=== PATIENT | female | born 1995 | race Asian ===

== ENCOUNTER 2023-08-09 07:48 | Inpatient (IN) ==
--- NOTE | 2023-08-09 08:47 | History & Physical Report ---
Date of Service August 09, 2023 Assessment & Plan (1) 41 weeks gestation of : (2) Encounter for induction of labor: Plan admit, iv. labs. add pitocin. epidural when desires. fhts categ 1. Admission and Anticipated Discharge Date Admission Date: August 09, 2023 History of Present Illness Chief Complaint: planned induction Primary Care Provider: JAME PCP 28yo at 41 wks egmichelle presents to L&D with cc of planned induction for postdates. No rom. Some irregular ctx. No significant vb. +FM. PNC otherwise uncomplicated. PNL rh pos, ri, gbs neg. OBH: g1 GYNH: nl paps, no stds Allergies Allergy/AdvReac Type Severity Reaction Status Date / Time No Known Allergies Allergy Verified 08/08/23 14:50 Home Medications Medication Instructions Recorded Confirmed Type prenat.vits,ning,kli-pkuy-rifwa 1 tab PO DAILY 12/14/22 08/09/23 History breast pump #1 ea 05/15/23 08/08/23 Rx ferrous sulfate 325 mg (65 mg 1 mg Q OTHER DAY 08/06/23 08/09/23 History iron) tablet Patient History Medical History (Updated 08/09/23 @ 08:54 by Lizbeth Cox MD, FACOG) Dust allergy Varicella vaccination History of chicken pox Asthma Surgical History No history of previous surgery Family History Aunt No problems noted. 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 Other Information That Helps Us Care for You: No Feels Safe at Home: Yes Safety Concerns: Feels Safe At This Time Assistive Devices: None Review of Systems as per Subjective / HPI Physical Exam Constitutional: WD/WN, vitals as above Respiratory: normal respiratory effort, lungs clear to auscultation Cardiovascular: Rate/Rhythm: regular rate and regular rhythm Gastrointestinal (Abdomen): soft gravid nt Musculoskeletal: no edema nontender calves Neurologic: grossly normal Psychiatric: A+Ox3, euthymic affect Genitourinary: OB Exam Abdomen: + estimated weight (6-7#) Manual OB Exam: + cervical dilation (post soft) 2 cm, + cervical effacement 80%, + station -2 and + amniotic fluid (AROM) clear OB Exam Monitor Tracing: + external FHT monitor used, + external uterine monitor used (q3), + category I and + normal FHT variability Results & Data Vital Signs (Past 12 Hours) Vital Signs Temp Pulse Resp BP 08/09/23 08:23 97.5 F L 104 H 18 106/62 08/09/23 08:12 104 H 106/62 Coding Level of Care Code None Diagnoses 41 weeks gestation of O48.0; Z3A.41 Encounter for induction of labor Z34.90
[2023-08-09] MEDS ORDERED: LIDOCAINE 1% LOCAL 20 ML VIAL INFIL PRN (08:55)
[2023-08-09] MEDS ORDERED: OXYTOCIN 30 UNITS/NSS 30 UNITS/500 ML BAG IV PRN ×3 (08:55→18:12)
[2023-08-09] MEDS: LACTATED RINGER'S 1,000 ML IV PRN ×2 (09:24→13:51)
[2023-08-09 09:45] LABS: Hematocrit (blood only) 34.8 % (37.0-47.0); Hemoglobin 11.9 g/dl (12.0-16.0); Mean Corpuscular Hemoglobin 27.1 pg (25.0-34.0); Mean Corpuscular Hgb Conc 34.2 g/dL (32.0-36.0); Mean Corpuscular Volume 79.3 fL (80.0-100.0); Mean Platelet Volume 12.3 fL (9.4-12.4); Platelet Count 173 K/uL (130-400); RDW Coefficient of Variation 13.7 % (11.5-14.5); RDW Standard Deviation 39.2 fL (36.4-46.3); Red Blood Count 4.39 M/uL (4.20-5.40); White Blood Count 17.86 K/ul (4.8-10.8)
[2023-08-09] MEDS ORDERED: LIDOCAINE 2%/EPINEPHRINE 1:200,000 20 ML PF ONE (10:49)
[2023-08-09] MEDS ORDERED: fentANYL 2 MCG/ML BUPIVacaine 0.125%-NSS 100ML BAG ONE (10:49)
[2023-08-09] MEDS ORDERED: fentaNYL citrate PF 100 MCG/2 ML VIAL ONE (10:49)
[2023-08-09] MEDS ORDERED: SODIUM CHLORIDE 0.9% PF INJ 10 ML VIAL ONE (10:49)
[2023-08-09] MEDS ORDERED: ePHEDrine sulfate 50 MG/ML AMP ONE (10:49)
[2023-08-09] MEDS ORDERED: BUPIVACAINE 0.25% PF 30 ML VIAL ONE (10:49)
--- NOTE | 2023-08-09 10:57 | Anesthesiology Consultation ---
Date of Service August 09, 2023 Assessment & Plan (1) Encounter for pre-operative examination: Chart Review Chart Review: Acceptable Risk for Labor Epidural History Height/Weight Height: 5 ft Weight: 57.606 kg Allergies Allergy/AdvReac Type Severity Reaction Status Date / Time No Known Allergies Allergy Verified 08/08/23 14:50 Medications Home Medications Medication Instructions Recorded Confirmed Last Taken prenat.vits,ning,hdy-awnx-jmhke 1 tab PO DAILY 12/14/22 08/09/23 08/08/23 09:00 breast pump #1 ea 05/15/23 08/08/23 Unknown ferrous sulfate 325 mg (65 mg 1 mg Q OTHER DAY 08/06/23 08/09/23 08/08/23 09:00 iron) tablet Active Medications Generic Name Dose Route Start Last Admin Trade Name Freq PRN Reason Stop Dose Admin Lactated Ringer's 1,000 mls @ 125 mls/hr 08/09/23 08:55 08/09/23 10:35 Lr IV 08/11/23 08:54 999 mls/hr .Q8H PRN Infusion L&D Protocol Protocol Oxytocin 30 units in 500 mls @ 3 mls/hr 08/09/23 08:55 08/09/23 10:00 Pitocin IV 08/11/23 08:54 0.18 units/hr .Q24H PRN 3 mls/hr Labor Induction/Augmentation Titration Protocol 0.18 UNITS/HR Past Medical History Medical History Dust allergy Varicella vaccination History of chicken pox Asthma Past Family History Family History Aunt No problems noted. Mother Asthma Denies family history of Ovarian cancer Breast cancer Colorectal cancer Past Surgical History Surgical History No history of previous surgery Social History Smoking Status: Never smoker Do You Dip or Chew Tobacco: No Hx Alcohol Use: No Hx Substance Use: No Physical Exam Vital Signs Last Vital Signs Temp 36.7 C 08/09/23 08:51 Pulse 97 H 08/09/23 10:53 Resp 18 08/09/23 10:30 BP 108/68 08/09/23 10:30 Pulse Ox 96 11/15/23 10:53 Testing Laboratory Results 08/09/23 09:02
[2023-08-09] MEDS ORDERED: fentANYL 2 MCG/ML BUPIVacaine 0.125%-NSS 100ML BAG EPI PRN (11:50)
[2023-08-09] MEDS ORDERED: NALOXONE HCL 1 MG in SODIUM CHLORIDE 0.9% 1,000 ML IV PRN (11:50)
[2023-08-09] MEDS ORDERED: ePHEDrine sulfate 50 MG/ML AMP IV PRN (11:50)
[2023-08-09] MEDS ORDERED: BUPIVACAINE 0.25% PF 30 ML VIAL EPI PRN (11:50)
[2023-08-09] MEDS ORDERED: fentaNYL citrate PF 100 MCG/2 ML VIAL EPI PRN (11:50)
[2023-08-09] MEDS ORDERED: SODIUM CHLORIDE 0.9% PF INJ 10 ML VIAL EPI PRN (11:50)
[2023-08-09] MEDS ORDERED: ONDANSETRON INJ 2 MG/ML 2 ML VIAL IV PRN (11:50)
[2023-08-09] MEDS ORDERED: SODIUM CHLORIDE 0.9% PF INJ 10 ML VIAL EPI STA (11:50)
[2023-08-09] MEDS ORDERED: LIDOCAINE 2% MPF LOCAL 5 ML VIAL EPI PRN (11:50)
[2023-08-09] MEDS ORDERED: BUPIVACAINE 0.25% PF 30 ML VIAL EPI STA (11:50)
[2023-08-09] MEDS ORDERED: NALOXONE HCL 0.4 MG/1 ML VIAL/CARP IV PRN (11:50)
[2023-08-09] MEDS ORDERED: fentaNYL citrate PF 100 MCG/2 ML VIAL EPI STA (11:50)
[2023-08-09] MEDS ORDERED: ROPIVACAINE 0.5% PF 5 MG/ML 20 ML VIAL EPI PRN (11:50)
[2023-08-09] MEDS ORDERED: LIDOCAINE 2%/EPINEPHRINE 1:200,000 20 ML PF EPI STA (11:50)
[2023-08-09] MEDS ORDERED: NURSING L&D Epidural Breakthrough Pain Update ONE (13:55)
--- NOTE | 2023-08-09 17:27 | Labor Progress Brief Note ---
Date of Service August 09, 2023 Subjective pt resting comfortably. had some nausea and was given meds and reports its better. Assessment & Plan (1) 41 weeks gestation of : (2) Encounter for induction of labor: (3) Meconium in amniotic fluid: Plan begin 2nd stage. already but doesn't feel urge to push. will adjust epidural settings. nursing plans to empty bladder and resume pushing. fhts categ 1. Admission and Anticipated Discharge Date Admission Date: August 09, 2023 Physical Exam Constitutional: WD/WN, vitals as above Genitourinary: Manual OB Exam: + cervical dilation 10 cm, + cervical efface ment 100% and + station + 3 OB Exam Monitor Tracing: + external FHT monitor used, + external uterine monitor used (q2), + category I and + normal FHT variability Results & Data Vital Signs (Past 12 Hours) Vital Signs Temp Pulse Resp BP Pulse Ox 08/09/23 17:23 96 H 96 08/09/23 17:18 99 H 96 08/09/23 17:15 88 109/65 08/09/23 17:13 91 H 94 08/09/23 17:08 91 H 94 08/09/23 17:03 90 95 08/09/23 17:00 87 16 110/66 08/09/23 16:58 93 H 95 08/09/23 16:53 134 H 97 08/09/23 16:51 98.1 F 08/09/23 16:48 93 H 95 08/09/23 16:45 89 102/70 08/09/23 16:43 87 95 08/09/23 16:38 98 H 95 08/09/23 16:33 94 H 95 08/09/23 16:30 93 H 18 104/63 08/09/23 16:28 90 94 08/09/23 16:23 97 H 95 08/09/23 16:18 101 H 96 08/09/23 16:16 141 H 106/70 08/09/23 16:13 134 H 97 08/09/23 16:08 85 96 08/09/23 16:03 92 H 97 08/09/23 16:00 90 18 110/62 08/09/23 15:58 88 95 08/09/23 15:53 87 96 08/09/23 15:48 93 H 96 08/09/23 15:45 93 H 110/67 08/09/23 15:43 90 95 08/09/23 15:38 91 H 95 08/09/23 15:33 92 H 95 08/09/23 15:30 18 08/09/23 15:30 18 08/09/23 15:29 90 109/67 08/09/23 15:28 90 94 08/09/23 15:23 90 96 08/09/23 15:18 88 95 08/09/23 15:14 94 H 113/70 08/09/23 15:13 93 H 96 08/09/23 15:08 93 H 95 08/09/23 15:03 86 95 08/09/23 15:01 92 H 111/69 08/09/23 15:00 18 08/09/23 15:00 18 08/09/23 14:58 88 95 08/09/23 14:53 89 94 08/09/23 14:48 91 H 95 08/09/23 14:44 93 H 108/66 08/09/23 14:43 93 H 95 08/09/23 14:38 95 H 95 08/09/23 14:33 94 H 96 08/09/23 14:30 88 108/63 08/09/23 14:28 93 H 95 08/09/23 14:25 98.1 F 08/09/23 14:23 94 H 95 08/09/23 14:18 98 H 95 08/09/23 14:14 92 H 103/57 L 08/09/23 14:13 88 94 08/09/23 14:08 101 H 95 08/09/23 14:03 88 94 08/09/23 13:59 91 H 101/57 L 08/09/23 13:58 90 95 08/09/23 13:53 89 95 08/09/23 13:48 94 H 95 08/09/23 13:45 85 111/64 08/09/23 13:43 90 96 08/09/23 13:38 87 95 08/09/23 13:33 90 96 08/09/23 13:32 91 H 105/59 L 08/09/23 13:30 18 08/09/23 13:30 18 08/09/23 13:28 89 96 08/09/23 13:23 93 H 96 08/09/23 13:18 97 H 96 08/09/23 13:14 92 H 97/56 L 08/09/23 13:13 95 H 95 08/09/23 13:08 92 H 95 08/09/23 13:03 87 96 08/09/23 13:00 88 18 94/56 L 08/09/23 12:58 93 H 95 08/09/23 12:53 90 95 08/09/23 12:48 97 H 94 08/09/23 12:46 102 H 98/53 L 08/09/23 12:43 86 94 08/09/23 12:38 93 H 95 08/09/23 12:33 84 94 08/09/23 12:30 18 08/09/23 12:30 18 08/09/23 12:29 87 90/50 L 08/09/23 12:28 83 95 08/09/23 12:24 86 86/50 L 08/09/23 12:23 84 94 08/09/23 12:19 90 88/52 L 08/09/23 12:18 80 95 08/09/23 12:15 82 89/52 L 08/09/23 12:13 83 94 08/09/23 12:09 90 88/52 L 08/09/23 12:08 89 94 08/09/23 12:04 90 91/53 L 08/09/23 12:03 90 94 08/09/23 12:00 98.1 F 96 H 93/57 L 08/09/23 11:58 95 H 96 08/09/23 11:56 98.2 F 08/09/23 11:54 92 H 08/09/23 11:54 94/56 L 08/09/23 11:54 87 95/52 L 08/09/23 11:53 90 93 08/09/23 11:52 90 96/58 L 08/09/23 11:50 90 99/58 L 08/09/23 11:48 92 H 97/58 L 93 08/09/23 11:46 92 H 121/56 L 08/09/23 11:43 100 H 92 08/09/23 11:38 88 96 08/09/23 11:33 99 H 96 08/09/23 11:29 95 H 111/64 91 08/09/23 11:28 100 H 93 08/09/23 11:23 107 H 93 08/09/23 11:18 99 H 95 08/09/23 11:13 93 H 94 08/09/23 11:08 91 H 96 08/09/23 11:03 94 H 94 08/09/23 11:00 97.9 F 08/09/23 10:58 96 08/09/23 10:58 86 08/09/23 10:58 96 H 93 08/09/23 10:53 97 H 96 08/09/23 10:48 94 H 97 08/09/23 10:30 93 H 18 108/68 08/09/23 10:00 18 08/09/23 10:00 18 08/09/23 09:30 18 08/09/23 09:30 18 08/09/23 09:28 108 H 99/59 L 08/09/23 08:51 98.1 F 08/09/23 08:23 97.5 F L 104 H 18 106/62 08/09/23 08:12 104 H 106/62 Coding Level of Care Code None Diagnoses 41 weeks gestation of O48.0; Z3A.41 Encounter for induction of labor Z34.90 Meconium in amniotic fluid P96.83
--- NOTE | 2023-08-09 18:10 | Delivery Summary ---
Vaginal Delivery Summary Date of Service August 09, 2023 Vaginal Delivery Summary and 2nd Degree LAC The patient dilated to complete and pushed to deliver a viable female Apgars 8 and 9 via over 2nd degree perineal laceration. Shoulders and body rapidly delivered with ease. Mouth and nose bulb suctioned. Infant was vigorous and crying at . Cord clamped at 30 seconds of life and infant to maternal abdomen where the cord was then doubly clamped and cut. Placenta delivered spontaneously and intact, three-vessel cord. Hemostasis achieved with dilute pitocin and uterine massage and drainage of the bladder for approximately 75cc under sterile conditions. Laceration repaired in routine fashion with 3-0 vicryl. Cervix and sulci intact. EBL 300 cc. Mother and baby stable in recovery. [facility] Vaginal Delivery Charge Delivery Type Details: and 2nd Degree LAC
[2023-08-09] MEDS ORDERED: HYDROCORTISONE ACETATE 25 MG SUPP PR PRN (18:12)
[2023-08-09] MEDS ORDERED: BENZOCAINE 20% SPRY 85 APPLN/85 GM CAN EXT PRN (18:12)
[2023-08-09] MEDS ORDERED: oxyCODONE/ACETAMINOPHEN 5mg/325mg TAB PO PRN (18:12)
[2023-08-09] MEDS ORDERED: DIPHTHERIA/TETANUS/PERTUSSIS Vaccine (Tdap, Age 7+yrs) 0.5mL SYR/VL IM ONE (18:12)
[2023-08-09] MEDS ORDERED: ACETAMINOPHEN 325 MG TAB PO PRN (18:12)
[2023-08-09] MEDS ORDERED: bisacodyL 10 MG SUPP PR PRN (18:12)
[2023-08-09] MEDS ORDERED: OXYTOCIN 20 UNITS/LR 1,002 ML IV SCH (18:15)
--- NOTE | 2023-08-09 19:04 | Anesthesia Procedure Note ---
Date of Service August 09, 2023 Anesthesia Post Epidural Note Vital Signs Vital Signs: Temp Pulse Resp BP Pulse Ox 36.5 C 77 18 109/63 95 08/09/23 18:00 08/09/23 19:00 08/09/23 18:45 08/09/23 19:00 08/09/23 17:53 Pain Intensity Bilateral Abdomen: Pain Intensity: 4 Notes Mental Status: alert / awake / arousable and participated in evaluation Nausea / Vomiting: adequately controlled Pain: adequately controlled Airway Patency, RR, SpO2: stable & adequate BP & HR: stable & adequate Hydration State: stable & adequate Neuraxial Anesthesia: was administered and sensory block is resolving Anesthetic Complications: no major complications apparent Epidural: Removed without complications and With tip intact
[2023-08-09] MEDS: DOCUSATE SODIUM 100 MG CAP PO SCH (21:47)
[2023-08-10] MEDS: IBUPROFEN 600 MG TAB PO PRN ×4 (00:28→23:12)
--- NOTE | 2023-08-10 07:16 | Obstetrical Progress Note ---
Date of Service August 10, 2023 Assessment & Plan (1) care following vaginal delivery: Plan Doing well Encourage ambulation Pain control Admission and Anticipated Discharge Date Admission Date: August 09, 2023 Supervising Physician Co-Signing Physician Notes Resident Physician Supervision Note: I was present with Dr. Norwood during the history and exam. I discussed the case with the resident and agree with the findings and plan as documented in the note. Any exceptions or clarifications are listed here: pt doing well, eating, voiding, ambulating. breast feeding. cor rrr, lungs ctab, abd soft ff 2 down nt, ext nt calves. ppd#1 s/p , routine care. breast, rhpos, ri. aware of male provider change control coordinator today and will see her in am. Documented By: Lizbeth Cox MD, FACOG Subjective 28 yo post day 1 s/p Ambulation: ambulating normally Voiding: no voiding problems Passing Gas:: Yes Diet Tolerance:: regular diet Lochia:: Small Feeding Type:: breast feeding Current Pain Level: mild Resting comfortably this AM in NAD. Denies PRATHER, CP, SOB, N/V/D, LE pain/swelling. Review of Systems Review of Systems: reviewed, per HPI Results & Data Vital Signs (Past 12 Hours) Vital Signs Temp Pulse Pulse Resp BP BP Pulse Ox 08/10/23 03:30 36.7 C 70 16 90/53 L 97 08/09/23 23:45 37.1 C 85 18 97/62 L 100 08/09/23 21:00 36.9 C 88 16 92/59 L 98 08/09/23 20:30 18 08/09/23 20:14 78 112/59 L 08/09/23 20:00 18 08/09/23 20:00 74 106/55 L 08/09/23 19:45 80 107/61 08/09/23 19:30 18 08/09/23 19:29 77 108/57 L O2 Del Method 08/10/23 03:30 Room Air 08/09/23 23:45 Room Air 08/09/23 21:00 Room Air 08/09/23 20:30 08/09/23 20:14 08/09/23 20:00 08/09/23 20:00 08/09/23 19:45 08/09/23 19:30 11/15/23 19:29 Resident Activity Tracking Resident Involvement: Resident Care Provided Care Provided: Adult Hospital Medicine
[2023-08-10] MEDS: DOCUSATE SODIUM 100 MG CAP PO SCH ×2 (08:50→20:53)
[2023-08-10] MEDS: PRENATAL VITAMIN 1 TAB PO SCH (08:50)
--- NOTE | 2023-08-11 08:15 | Obstetrical Progress Note ---
Date of Service August 11, 2023 Assessment & Plan (1) care following vaginal delivery: Plan Doing well Encourage ambulation Pain control Discharge today Admission and Anticipated Discharge Date Admission Date: August 09, 2023 Supervising Physician Co-Signing Physician Notes Patient seen with resident and agree with the above findings and plan. Stable for discharge. Subjective 28 yo post day 1 s/p Ambulation: ambulating normally Voiding: no voiding problems Passing Gas:: Yes Diet Tolerance:: regular diet Lochia:: Small Feeding Type:: breast feeding Current Pain Level: mild Resting comfortably this AM in NAD. Denies PRATHER, CP, SOB, N/V/D, LE pain/swelling. Review of Systems Review of Systems: reviewed, per HPI Physical Exam Physical Exam: General: patient resting comfortably, NAD, non-toxic in appearance, answers questions appropriately. Skin: warm, dry, intact HEENT: NC/AT, anicteric sclera, conjunctiva without injection, moist mucus membranes. Heart: +S1/S2, regular, no m/r/g Lungs: equal air entry bilaterally, no rales/rhonchi/wheezes Abd: +BS, soft, NT/ND, uterine fundus firm at umbilicus Ext: warm, no clubbing/cyanosis or edema, Zaida's neg. Neuro: speech intact, no facial droop, moving all extremities on command. Results & Data Vital Signs (Past 12 Hours) Vital Signs Temp Pulse Resp BP Pulse Ox O2 Del Method 08/10/23 23:20 36.9 C 69 20 99/63 L 100 Room Air 08/10/23 20:40 Room Air 08/10/23 20:40 36.9 C 89 18 102/66 97 Room Air Resident Activity Tracking Resident Involvement: Resident Care Provided Care Provided: Adult Hospital Medicine
[2023-08-11] MEDS: PRENATAL VITAMIN 1 TAB PO SCH (08:33)
[2023-08-11] MEDS: IBUPROFEN 600 MG TAB PO PRN ×2 (08:34→15:45)
[2023-08-11] MEDS: DOCUSATE SODIUM 100 MG CAP PO SCH (08:36)
== END 2023-08-11 19:15 | disposition home or self-care (01) | DRG 807 ==
LOC: 4S1 07:48 → 4E2 20:45